=== PATIENT | female | born 1950 | race Two or more races ===

== ENCOUNTER 2020-07-08 09:40 | Emergency (ER) | payer MEDICARE, OTHER ==
[~2020-07-08] VITALS: Ht 162.6 cm; Wt 63.5 kg
[2020-07-08 10:30] VITALS: BP 139/75
[2020-07-08] MEDS ORDERED: ACETAMINOPHEN 500 MG TAB PO ONE (11:15)
== END 2020-07-08 14:30 | disposition home or self-care (01) ==
LOC: EDBD 09:40 → ER 09:40
DX: S22.42XA Multiple fractures of ribs, left side, initial encounter for closed fracture (principal); M54.5 Low back pain; I10 Essential (primary) hypertension; Z90.710 Acquired absence of both cervix and uterus; V49.9XXA Car occupant (driver) (passenger) injured in unspecified traffic accident, initial encounter; Y93.89 Activity, other specified; Y92.89 Other specified places as the place of occurrence of the external cause; Y99.8 Other external cause status
CPT/HCPCS: 71045; 72040; 72070; 72100

== ENCOUNTER 2020-11-06 19:36 | Emergency (ER) | payer MEDICARE, OTHER ==
[~2020-11-06] VITALS: Ht 152.4 cm; Wt 47.6 kg
[2020-11-06 20:05] LABS: Basophils # (auto) 0.1 10 ^3/uL (0-0.2); Eosinophils # (auto) 0.2 10 ^3/uL (0-0.8); Eosinophils % (auto) 2.6 % (0.0-7.0); Hematocrit 38.4 % (36.0-46.0); Hemoglobin 13.2 g/dL (12.2-16.2); Lymphocytes # (auto) 3.6 10 ^3/uL (0.4-5.4); Lymphocytes % (auto) 39.9 % (10.0-50.0); Mean Corpuscular Hemoglobin 29.9 pg (28.0-32.0); Mean Corpuscular Hgb Conc. 34.5 g/dL (32.0-36.0); Mean Corpuscular Volume 86.7 fL (80.0-100.0); Monocytes # (auto) 0.7 10 ^3/uL (0-1.3); Neutrophils # (auto) 4.3 10 ^3/uL (1.6-8.6); Neutrophils % (auto) 48.5 % (37.0-80.0); Nucleated Red Blood Cells % 0.1 %; Platelet Count (auto) 261 10^3/uL (140-450); Red Blood Cells 4.43 10^6/uL (4.0-5.20); Red Cell Distribution Width 14.3 % (11.8-14.3)
[2020-11-06 20:16] LABS: Anion Gap 6 (5-15); BUN/Creatinine Ratio 15.9; Blood Urea Nitrogen 14 mg/dL (7-18); Carbon Dioxide 25 mmol/L (21-32); Chloride 105 mmol/L (98-107); GFR African American 81 mL/min; Glucose 106 mg/dL (74-106); Potassium 4.3 mmol/L (3.5-5.1); Sodium 136 mmol/L (136-145)
[2020-11-06 20:17] LABS: Alanine Aminotransferase 22 U/L (13-56); Albumin 3.6 g/dL (3.4-5.0); Aspartate Aminotransferase 16 U/L (15-37); Calcium 8.8 mg/dL (8.5-10.1); GFR Non-African American 67 mL/min; Lipase 129 U/L (73-393)
[2020-11-06 20:21] LABS: Alkaline Phosphatase 79 U/L (45-117); Bilirubin, Total 0.5 mg/dL (0.2-1.0); Total Protein 7.3 g/dL (6.4-8.2)
[2020-11-06 21:55] LABS: Urine Bacteria FEW /hpf (None Seen); Urine Blood 3+ /uL (Negative); Urine Mucus FEW (None Seen); Urine Specific Gravity 1.014 (1.001-1.035); Urine WBC 13 /hpf (0 - 5)
[2020-11-06 22:00] VITALS: BP 137/72
[2020-11-06] MEDS ORDERED: cefTRIAXone 1GM/50ML D5W 50 ML IV ONE (23:30)
== END 2020-11-06 23:24 | disposition home or self-care (01) ==
LOC: ER 19:36
DX: N39.0 Urinary tract infection, site not specified (principal); I10 Essential (primary) hypertension
CPT/HCPCS: 36415; 74176; 80053; 81001; 83690; 83735; 84484; 85025; 93005; 96365; 99285; J0696